=== PATIENT | female | born 1945 | race Caucasian/White ===

== ENCOUNTER → 2016-10-09 | Outpatient (CLI) | payer MEDICARE ==
[~2016-10-09] MED LIST: B COMPLEX1 CA1 PO; BIOFREEZE; CATAPRES0.1 MG PO; CLOPIDOGREL BIS75 MG PO; CLOPIDOGREL75 MG PO; COUMADIN PO; CYMBALTA PO; EFFEXOR PO; FENTANYL1 EAC1 TD; FISH OIL 1,0001 CAP PO; HYDRALAZINE HCL25 MG PO; K-DUR20 ME2 PO; LASIX PO; LIDOCAINE PATCH; LIDODERM PATCH; LIPITOR40 MG PO; LISINOPRIL10 MG PO; MULTI VITAMIN1 EACH PO; NORCO 10/325 TA1 TAB PO; OXYCODONE HCL5 M1 PO; PERCOCET 10/31 UDTA1 PO; PRISTIQ50 MG PO
--- NOTE | ~2016-10-09 | CR63 ---
[facility] A Service of [facility] & [facility] RADIOLOGY TEXT RESULTS PATIENT: ROSENDA PONCE LOCATION: [facility] : 49 UNIT #: [id number] AGE: [address]: Neil Whitehead MD SEX: F ORDER DR: [id number] [facility] [address] [place], [place] [address] [id number] O MR#: [id number] Acc #: [id number] NAME: ROSENDA PONCE : 1945 SEX: F STUDY DATE/TIME: 10/09/2016 11:21 UNIT: [facility] ROOM: STUDY DESCRIPTION: CR Chest 2 View Attending Physician: Neil Whitehead M.D. Referring Physician: Neil Whitehead M.D. Ordering Physician: Neil Whitehead M.D. Primary Care Physician: Esme Pearson M.D. MEDICAL IMAGING REPORT This report is preliminary unless electronic signature is present EXAM PA and lateral chest. HISTORY Renal carcinoma. Back pain since August. Not feeling well. Evaluate for mets. FINDINGS A PA and lateral view of the chest were obtained. The heart size and vascularity and are normal. I believe the patient has a left-sided breast implant which causes some increased density in the left lower lobe on the PA view only. There are no infiltrates. There is a calcified granuloma in the right lung. There is degenerative change in the thoracic spine. IMPRESSION No active disease. Dictated by... Alen Keith M.D. THIS IS AN ELECTRONICALLY VERIFIED REPORT Alen Keith M.D. at 10/09/2016 4:55 PM ELLIS/shaila TD: 10/09/2016 15:02 JOB #: [id number] MEDICAL IMAGING REPORT COPY
[2016-10-09 11:11] LABS: HEMATOCRIT 38.9 % (35.0-45.0); HEMOGLOBIN 12.9 gm/dL (12.0-16.0); MEAN CELL VOLUME 90.7 FL (83-96); MEAN CORPUSCULAR HEMOGLOBIN 30.1 PG (28-34); MEAN CORPUSCULAR HGB CONC 33.2 g/dL (30-36); MEAN PLATELET VOLUME 7.8 FL (6.5-11.5); RED BLOOD COUNT 4.28 X10e (3.90-5.30); RED CELL DISTRIBUTION WIDTH 14.2 % (11.0-15.5); WHITE BLOOD COUNT 12.5 X10e3 (4.0-10.5)
[2016-10-09 11:45] LABS: BILIRUBIN,TOTAL 0.9 mg/dL (0.2-2.0); BUN/CREATININE RATIO 24.61; CALCIUM SERUM 9.2 mg/dL (8.4-10.2); CREATININE SERUM 1.3 mg/dL (0.6-1.4); GLOM FILT RATE Estimated 43.2 mL/min (>60); POTASSIUM 5.4 mmol/L (3.5-5.1); PROTEIN TOTAL SERUM 7.3 g/dL (6.0-8.3)
== END | disposition home or self-care (01) ==
LOC: CLAB 10:40
PROVIDERS: Urology
DX: C64.9 Malignant neoplasm of unspecified kidney, except renal pelvis (principal)
CPT/HCPCS: 36415; 71020; 80053; 85027